=== PATIENT | female | born 1930 | race Caucasian/White ===

== ENCOUNTER 2017-05-11 20:35 | Observation (INO) | payer MEDICARE, BC ==
[~2017-05-11] VITALS: Ht 152.4 cm; Wt 51.0 kg
[~2017-05-11 20:35] MED LIST: ANTIVERT 25MG25 MG PO; ASPIRIN 32325 MG/TAB PO; BENADRYL25 M2 PO; CALCIUM 600MG+D1 TAB PO; CARDIZEM CD 30300 MG PO; EPI EZ PEN1 MG/ML IM; EPIPEN 2-PAK1 MG/ML IM; FISH OIL 1000MG1 CAP PO; HYZAAR 12.5 MG-1 TAB PO; LEVOXYL0.075 MG PO; MACRODANTIN100 PO; MOBIC15 MG PO; MULTI VITAMINS1 TAB PO; PEPCID 20MG TAB20 MG PO; PREDNISONE20 MG PO; SYNTHROID0.088 MG/T PO; TYLENOL 325MG325 MG PO; [UNRECOGNIZED DRUG - OTHER]
[2017-05-11 21:07] LABS: BASO # 0.1 (0.0-0.2); BASO % 1.7 % (0.0-2.0); EOS # 0.4 (0.0-0.7); EOS % 4.3 % (0-4.0); GRAN # 3.3 (1.4-6.5); HEMATOCRIT 35.8 % (37.0-47.0); HEMOGLOBIN 11.8 g/dl (12.5-16.0); LYMPH # 3.3 (1.2-3.4); LYMPH % 39.6 % (20.0-51.0); MEAN CELL VOLUME 78 fl (80.0-100.0); MEAN CORPUSCULAR HEMOGLOBIN 26 pg (27.0-31.0); MEAN CORPUSCULAR HGB CONC 33 g/dl (33.0-37.0); MEAN PLATELET VOLUME 10.6 fl (7.4-10.4); MONO # 1.3 (0.1-0.6); PLATELET COUNT 326 K/mm3 (130-400); RED BLOOD COUNT 4.61 M/mm3 (4.10-5.30); WHITE BLOOD COUNT 8.4 K/mm3 (4.8-10.8)
[2017-05-11 21:14] LABS: ADJUSTED CALCIUM 9.6 mg/dL (8.4-10.2); ALANINE AMINOTRANSFERASE 31 U/L (9-52); ALBUMIN 3.8 gm/dL (3.5-5.0); ALKALINE PHOSPHATASE 76 U/L (50-136); ANION GAP 11 mmol/L (7-16); BILIRUBIN,TOTAL 0.5 mg/dL (0.0-1.0); BLOOD UREA NITROGEN 18 mg/dL (7-17); CALCIUM 9.4 mg/dL (8.4-10.2); CARBON DIOXIDE 17 mmol/L (22-30); CHLORIDE 108 mmol/L (98-107); CREATININE, serum 1.09 mg/dL (0.52-1.25); GLUCOSE 105 mg/dL (74-106); POTASSIUM 3.7 mmol/L (3.4-5.0); SODIUM 136 mmol/L (137-145); TOTAL PROTEIN 7.1 gm/dL (6.4-8.2)
[2017-05-11 21:26] LABS: B-TYPE NATRIURETIC PEPTIDE 359 pg/mL (0-450)
[2017-05-11 21:33] LABS: TROPONIN-I < 0.012 ng/mL (0.000-0.034)
[2017-05-11] MEDS ORDERED: COZAAR100 MG PO (23:29)
[2017-05-11] MEDS ORDERED: CARDIZEM CD 24240 MG PO (23:30)
[2017-05-11 23:37] LABS: PH 5 (5-8); SQUAMOUS EPITHELIAL 0-2 /hpf; URINE APPEARANCE Clear; URINE BACTERIA Rare /hpf; URINE BILIRUBIN Negative (NEGATIVE); URINE BLOOD Negative (NEGATIVE); URINE COLOR Yellow; URINE GLUCOSE Negative (NEGATIVE); URINE KETONE Negative (NEGATIVE); URINE RBC 0-2 /hpf; URINE UROBILINOGEN Negative (NEGATIVE)
[2017-05-12 00:01] VITALS: BP 160/60; PULSE 59; TEMP 97.7
[2017-05-12] MEDS ORDERED: XALATAN EYE DROPS OU (03:11)
[2017-05-12] MEDS ORDERED: SIMBRINZA 0.2%-18 ML OU (03:12)
[2017-05-12 03:44] VITALS: BP 155/81; PULSE 52
[2017-05-12 03:45] VITALS: BP 166/60; PULSE 66
[2017-05-12 08:00] VITALS: BP 177/61; PULSE 63; TEMP 98.3
[2017-05-12 09:16] VITALS: BP 177/61; PULSE 63; TEMP 98.6
[2017-05-12 12:00] VITALS: BP 108/84; PULSE 68; TEMP 98.2
[2017-05-12 12:28] LABS: CALCIUM 8.8 mg/dL (8.4-10.2); CREATININE, serum 0.85 mg/dL (0.52-1.25); POTASSIUM 3.5 mmol/L (3.4-5.0)
[2017-05-12] MEDS ORDERED: CEFTIN 250250 MG/TAB PO (14:11)
[2017-05-12] MEDS ORDERED: CARDIZEM CD 18180 MG PO (14:12)
[2017-05-12] MEDS ORDERED: ANTIVERT 25MG25 MG PO (14:14)
== END 2017-05-12 17:24 | disposition home or self-care (01) ==
LOC: COL.ER 20:35 → MEDICAL 22:50
PROVIDERS: Emergency Medicine; Nurse Practitioner Family
DX: S01.311A Laceration without foreign body of right ear, initial encounter (principal); E78.5 Hyperlipidemia, unspecified; I45.10 Unspecified right bundle-branch block; J84.10 Pulmonary fibrosis, unspecified; I08.3 Combined rheumatic disorders of mitral, aortic and tricuspid valves; I70.0 Atherosclerosis of aorta; G31.9 Degenerative disease of nervous system, unspecified; E03.9 Hypothyroidism, unspecified; N39.0 Urinary tract infection, site not specified; I12.9 Hypertensive chronic kidney disease with stage 1 through stage 4 chronic kidney disease, or unspecified chronic kidney disease; E11.22 Type 2 diabetes mellitus with diabetic chronic kidney disease; J43.9 Emphysema, unspecified; N18.9 Chronic kidney disease, unspecified; R55 Syncope and collapse; R19.7 Diarrhea, unspecified; R42 Dizziness and giddiness; Z87.11 Personal history of peptic ulcer disease; Z90.3 Acquired absence of stomach [part of]; Z90.49 Acquired absence of other specified parts of digestive tract; Z85.828 Personal history of other malignant neoplasm of skin; Z90.710 Acquired absence of both cervix and uterus; Z96.651 Presence of right artificial knee joint; Z82.49 Family history of ischemic heart disease and other diseases of the circulatory system; W19.XXXA Unspecified fall, initial encounter; Y92.009 Unspecified place in unspecified non-institutional (private) residence as the place of occurrence of the external cause
CPT/HCPCS: A9585; G0378; G8978-GP; G8979-GP; J0696; J1650; J7030; J7040

== ENCOUNTER → 2018-02-22 | Outpatient (REF) ==
[~2018-02-22] MED LIST changes: +CARDIZEM CD 18180 MG PO; +CARDIZEM CD 24240 MG PO; +CEFTIN 250250 MG/TAB PO; +COZAAR100 MG PO; +SIMBRINZA 0.2%-18 ML OU; +XALATAN EYE DROPS OU
== END ==
LOC: ZLAB.WCH 08:32
DX: Z01.89 Encounter for other specified special examinations (principal)